=== PATIENT | male | born 1995 | race Caucasian/White ===

== ENCOUNTER 2016-12-13 21:15 | Emergency (ER) | payer OTHER ==
[2016-12-13 21:23] VITALS: BP 122/72
[2016-12-14] MEDS ORDERED: Ibuprofen TAB* 600 MG PO ONE (01:22)
--- NOTE | 2016-12-14 01:23 | ED ---
Upper Extremity Pain - HPI Summary HPI Summary: Rt hand dominant pt here w/ Lt wrist pain after injury playing flag football rodolfo. BUTCH. Has swelling and pain since injury - pain worse w/ movement of wrist. Denies numbness, tingling, weakness. Took 600mg ibuprofen at 20:00 - not sure it helped much. Has not iced. Better when he doesn't move it. No previous injury here to report. No other injuries to report as result of today's incident. - History of Current Complaint Chief Complaint: EDExtremityUpper Stated Complaint: LT WRIST INJURY Time Seen by Provider: 12/13/16 23:11 Hx Obtained From: Patient - Allergies/Home Medications Allergies/Adverse Reactions: Allergies Allergy/AdvReac Type Severity Reaction Status Date / Time No Known Allergies Allergy Verified 12/13/16 21:22 PMH/Surg Hx/FS Hx/Imm Hx Previously Healthy: Yes Endocrine/Hematology History: Denies: Hx Anticoagulant Therapy, Hx Blood Disorders - Immunization History Immunizations Up to Date: Yes Infectious Disease History: No Infectious Disease History: Denies: Traveled Outside the [place] in Last 30 Days - Family History Known Family History: Positive: None - Social History Occupation: Student Lives: Dormitory/Roommates Alcohol Use: Weekly Hx Substance Use: No Substance Use Type: Reports: None Hx Tobacco Use: No Smoking Status (MU): Never Smoked Tobacco Review of Systems Constitutional: Negative Positive: no symptoms reported Musculoskeletal: Other - see HPI Skin: Other - see HPI Neurological: Negative Psychological: Normal All Other Systems Reviewed And Are Negative: Yes Physical Exam Triage Information Reviewed: Yes Vital Signs On Initial Exam: Initial Vitals Temp Pulse Resp BP Pulse Ox 97.9 F 63 18 122/72 99 12/13/16 21:18 12/13/16 21:18 12/13/16 21:18 12/13/16 21:18 12/13/16 21:18 Vital Signs Reviewed: Yes Appearance: Positive: Well-Appearing, No Pain Distress, Well-Nourished Skin: Positive: Warm, Dry - focal, well defined edema over dorsal Rt radial aspect of dsital radius - TTP - skin breakdown Head/Face: Positive: Normal Head/Face Inspection Eyes: Positive: EOMI ENT: Positive: Hearing grossly normal Respiratory/Lung Sounds: Positive: Breath Sounds Present Cardiovascular: Positive: Pulses are Symmetrical in both Upper and Lower Extremities Musculoskeletal: Positive: Other - Rt forearm, elbow, shoulder, MCP's, MC's, carpals all NTTP and w/o gross deformity. Negative: Strength/ROM Intact - d/ pain Rt wrist limited Neurological: Positive: Normal, Sensory/Motor Intact, Alert, Oriented to Person Place, Time, CN Intact II-III Psychiatric: Positive: Normal Procedures - Splinting Hand-Made Type: fiberglass Splint: sugar-tong Pre-Proc Neuro Vasc Exam: normal Post-Proc Neuro Vasc Exam: normal Diagnostics - Vital Signs Vital Signs Temp Pulse Resp BP Pulse Ox 12/13/16 21:18 97.9 F 63 18 122/72 99 - Laboratory Diagnostic Studies Comment: Rt wrist XR : (wet read) Rt distal radius w/ fracture - nondisplaced, possible involving articular surface. No other fx's ID' d Lab Statement: Any lab studies that have been ordered have been reviewed, and results considered in the medical decision making process. Course/Dx - Course Course Of Treatment: KARINA F/U W/ ORTHO TOMORROW - REVIEWED DANGER S/SX OF WHEN TO RETURN TO ed. Pt and roommates are present - agree w/ plan. - Diagnoses Provider Diagnoses: Closed fracture of distal end of radius - Physician Notifications Discussed Care of Patient With: Morris Toribio - reviewed XR Discharge - Discharge Plan Condition: Stable Disposition: HOME Patient Education Materials: Wrist Fracture in Adults (ED), Splint Care (ED) Referrals: Analisa Brantley MD [Medical Doctor] - Additional Instructions: Rest, ice, elevation Keep splint clean, dry and intact until seen by orthopedics. Call tomorrow to schedule an appointment. You may take [id number] every 6 hours with food for pain and swelling. You may alternate with acetaminophen 650mg every 6 hours for breakthrough pain. *If you develop numbness, tingling, weakness, swelling of your fingers, you may loosen AMA wrap and elevate arm for 20 minutes. If symptoms continue, return to ED
--- NOTE | 2016-12-14 07:52 | RAD ---
HISTORY: Left wrist trauma COMPARISONS: None VIEWS: 4, Frontal, lateral, and oblique views of the left wrist FINDINGS: BONE DENSITY: Normal. BONES: There is no displaced fracture. JOINTS: There is no arthropathy. ALIGNMENT: There is no dislocation. SOFT TISSUES: Unremarkable. OTHER FINDINGS: None. IMPRESSION: NO ACUTE OSSEOUS INJURY. IF SYMPTOMS PERSIST, RECOMMEND REPEAT IMAGING.
== END 2016-12-14 01:50 | disposition home or self-care (01) ==
LOC: ED 21:15
DX: S52.502A Unspecified fracture of the lower end of left radius, initial encounter for closed fracture (principal); W19.XXXA Unspecified fall, initial encounter; Y93.62 Activity, american flag or touch football; Y92.9 Unspecified place or not applicable
CPT/HCPCS: 99282; A9270-GY

== ENCOUNTER → 2017-11-29 23:07 | Emergency (ER) | payer OTHER ==
--- NOTE | 2017-11-29 23:58 | ED ---
Laceration/Wound HPI - HPI Summary HPI Summary: 21-year-old male presents with right ring finger laceration today. He states he cut it doing dishes. He has a superficial laceration to the tip of his ring finger. No active bleeding. No numbness or tingling. No other injury. Tetanus up-to-date. No medical conditions. - History of Current Complaint Stated Complaint: RT RING FINGER LAC Time Seen by Provider: 11/29/17 23:33 Pain Intensity: 0 - Allergy/Home Medications Allergies/Adverse Reactions: Allergies Allergy/AdvReac Type Severity Reaction Status Date / Time No Known Allergies Allergy Verified 11/29/17 23:13 PMH/Surg Hx/FS Hx/Imm Hx Endocrine/Hematology History: Denies: Hx Anticoagulant Therapy, Hx Blood Disorders Cardiovascular History: Denies: Hx Hypertension Infectious Disease History: No Infectious Disease History: Denies: Traveled Outside the [place] in Last 30 Days - Family History Known Family History: Positive: None Negative: Diabetes - Social History Alcohol Use: Weekly Hx Substance Use: No Substance Use Type: Reports: None Hx Tobacco Use: No Smoking Status (MU): Never Smoked Tobacco Review of Systems Negative: Fever Negative: Chest Pain Negative: Shortness Of Breath Positive: Other - finger laceration All Other Systems Reviewed And Are Negative: Yes Physical Exam Triage Information Reviewed: Yes Vital Signs On Initial Exam: Initial Vitals Temp Pulse Resp BP Pulse Ox 98.3 F 70 16 125/68 97 11/29/17 23:10 11/29/17 23:10 11/29/17 23:10 11/29/17 23:10 11/29/17 23:10 Vital Signs Reviewed: Yes Appearance: Positive: Well-Appearing Skin: Positive: Warm, Dry, Other - 1cm laceration to right index finger distal finger Head/Face: Positive: Normal Head/Face Inspection Eyes: Positive: Normal, Conjunctiva Clear ENT: Positive: Pharynx normal Respiratory/Lung Sounds: Positive: Clear to Auscultation, Breath Sounds Present Cardiovascular: Positive: Normal, RRR Musculoskeletal: Positive: Strength/ROM Intact - right hand, Other - capillary refill<2secs Neurological: Positive: Normal Psychiatric: Positive: Normal Procedures - Laceration/Wound Repair 1 Location: Other - right ring finger Description: Linear Length, Depth and Shape: 1cm superficial Irrigated w/ Saline (ccs): 200 Closure: Skin Adhesive, SteriStrips Diagnostics - Vital Signs Vital Signs Temp Pulse Resp BP Pulse Ox 11/29/17 23:10 98.3 F 70 16 125/68 97 - Laboratory Lab Statement: Any lab studies that have been ordered have been reviewed, and results considered in the medical decision making process. Laceration Repair Course/Dx - Course Course Of Treatment: 21-year-old male presents with right ring finger laceration today. He states he cut it doing dishes. He has a superficial laceration to the tip of his ring finger. No active bleeding. No numbness or tingling. No other injury. Tetanus up-to-date. No medical conditions. On exam has superficial laceration to the tip of right ring finger. Cleaned area and place glue. Patient understands agrees with plan. - Differential Dx Differental Diagnoses: Abrasion, Avulsion, Laceration - Clinical Impression Provider Diagnoses: Finger laceration Discharge - Sign-Out/Discharge Documenting (check all that apply): Patient Departure - Discharge Plan Condition: Good Disposition: HOME Patient Education Materials: Skin Adhesive Care (ED) Referrals: No Primary Care Phys,NOPCP [Primary Care Provider] - Additional Instructions: Place ice on area Take Tylenol or ibuprofen for pain as needed every 6 hours Keep dry for 24 hours Glue will fall off on own Avoid scrubbing area Return to ED if develop any signs of infection or any new or worsening symptoms - Billing Disposition and Condition Condition: GOOD Disposition: Home
[2017-11-30 00:04] VITALS: BP 116/71
== END | disposition home or self-care (01) ==
LOC: ED 23:07
DX: S61.214A Laceration without foreign body of right ring finger without damage to nail, initial encounter (principal); W26.0XXA Contact with knife, initial encounter; Y92.9 Unspecified place or not applicable
CPT/HCPCS: 99281